=== PATIENT | female | born 1965 | race Caucasian/White ===

== ENCOUNTER 2024-03-14 16:23 | Emergency (ER) | payer MEDICAID ==
[~2024-03-14] VITALS: Ht 160 cm; Wt 70.5 kg
[2024-03-14] MEDS ORDERED: TRAZ-252 PO (16:29)
[2024-03-14 16:30] VITALS: BP 126/74; PULSE 86; RESP 18; TEMP 98.9; O2SAT 98
[2024-03-14 16:58] LABS: COVID AG,FIA SOURCE NASAL SWAB
[2024-03-14 17:13] LABS: RAPID GROUP A STREP NEGATIVE (NEGATIVE)
[2024-03-14 17:20] LABS: SARS-COV2 (COVID) ANTIGEN,FIA Negative (Negative)
[2024-03-14 17:21] LABS: INFLUENZA TYPE A NEGATIVE FOR TYPE A (NEGATIVE); INFLUENZA TYPE B NEGATIVE FOR TYPE B (NEGATIVE)
== END 2024-03-14 17:29 | disposition left against medical advice (07) ==
LOC: EMS 16:39
DX: J02.9 Acute pharyngitis, unspecified (principal); R09.81 Nasal congestion; R05.9 Cough, unspecified; Z53.21 Procedure and treatment not carried out due to patient leaving prior to being seen by health care provider; Z20.822 Contact with and (suspected) exposure to COVID-19
CPT/HCPCS: 87430; 87804